=== PATIENT | female | born 1990 | race Caucasian/White ===

== ENCOUNTER → 2018-01-17 | Outpatient (CLI) | payer BC ==
--- NOTE | 2018-01-18 07:26 | US ---
EXAMINATION TYPE: US transvaginal DATE OF EXAM: 01/17/2018 COMPARISON: NONE CLINICAL HISTORY: Z30.431 routine checking of IUD contraceptive. IUD placement 02/05, doctor unable t o see strings on recent pap TECHNIQUE: Transvaginal (TV) Date of LMP: 12/20/17 EXAM MEASUREMENTS: Uterus: 7.4 x 3.5 x 4.8 cm Endometrial Stripe: 0.5 cm Right Ovary: 3.2 x 2.6 x 1.9 cm Left Ovary: 2.4 x 1.7 x 1.7 cm 1. Uterus: Anteverted heterogeneous 2. Endometrium: IUD visualized within body of uterus centrally bridging the upper and lower uterine segments. 3. Right Ovary: follicles noted 4. Left Ovary: follicles noted 5. Bilateral Adnexa: wnl 6. Posterior cul-de-sac: wnl IMPRESSION: Central intraendometrial intrauterine device appearing appropriately placed. No abnormal endometrial thickening.
== END | disposition home or self-care (01) ==
LOC: RADUSWWP 15:57
PROVIDERS: ATTEND Family Medicine
DX: Z30.431 Encounter for routine checking of intrauterine contraceptive device (principal)
CPT/HCPCS: 76830

== ENCOUNTER 2018-05-22 09:19 | Emergency (ER) | payer BC ==
[2018-05-22] MEDS ORDERED: KETOROLAC 30 MG/ML 1 ML VIAL IVP STA (10:18)
[2018-05-22] MEDS ORDERED: ACETAMINOPHEN TAB 500 MG TAB PO STA (10:18)
[2018-05-22 10:51] LABS: Basophils % (A) 1 %; Eosinophils # (A) 0.1 k/uL (0-0.7); Eosinophils % (A) 2 %; HCT 42.7 % (34.0-46.0); HGB 14.4 gm/dL (11.4-16.0); Lymphocytes # (A) 1.7 k/uL (1.0-4.8); Lymphocytes % (A) 28 %; MCH 28.4 pg (25.0-35.0); MCHC 33.7 g/dL (31.0-37.0); MCV 84.4 fL (80.0-100.0); Mean Platelet Volume 6.8; Monocytes # (A) 0.4 k/uL (0-1.0); Monocytes % (A) 6 %; Neutrophils # (A) 3.8 k/uL (1.3-7.7); Neutrophils % (A) 61 %; Platelet Count 260 k/uL (150-450); RBC 5.05 m/uL (3.80-5.40); RDW 12.9 % (11.5-15.5); WBC 6.2 k/uL (3.8-10.6)
[2018-05-22 11:02] LABS: Appearance,Urine Clear (Clear); Bilirubin,Urine Negative (Negative); Blood,Urine Moderate (Negative); Color,Urine Light Yellow; Glucose,Urine (UA) Negative (Negative); Ketones,Urine Negative (Negative); Leukocyte Esterase,Urine Negative (Negative); Mucus,Urine Rare /hpf; Nitrite,Urine Negative (Negative); PH, Urine 5.5 (5.0-8.0); Protein,Urine Negative (Negative); RBC,Urine 1 /hpf (0-5); Specific Gravity,Urine 1.006 (1.001-1.035); Squamous Epithelial Cell,Urine <1 /hpf (0-4); Urobilinogen,Urine <2.0 mg/dL (<2.0); WBC,Urine <1 /hpf (0-5)
--- NOTE | 2018-05-22 12:08 | ED ---
Abdominal Pain HPI - General Chief Complaint: Abdominal Pain Stated Complaint: Bleeding Time Seen by Provider: 05/22/18 09:37 Source: patient, RN notes reviewed, old records reviewed Mode of arrival: ambulatory Limitations: no limitations - History of Present Illness Initial Comments: This patient is a 27 year old female with vaginal bleeding after intercourse this moringin. She states that she had positive test last wek. She is concerned for miscarrage. Patient reports she has an IUD. She states that she had US to confirm placement 2 months ago. She sees Dr. Starks. - Related Data Allergies Allergy/AdvReac Type Severity Reaction Status Date / Time bupropion [From Wellbutrin] Allergy Rash/Hives Verified 05/22/18 09:21 mirtazapine [From Remeron] Allergy Rash/Hives Verified 05/22/18 09:21 Review of Systems ROS Statement: Those systems with pertinent positive or pertinent negative responses have been documented in the HPI. ROS Other: All systems not noted in ROS Statement are negative. Past Medical History Past Medical History: No Reported History History of Any Multi-Drug Resistant Organisms: None Reported Additional Past Surgical History / Comment(s): thyroid tumor removed Past Psychological History: No Psychological Hx Reported, Anxiety, Depression Smoking Status: Never smoker Past Alcohol Use History: Occasional Past Drug Use History: None Reported General Exam - General Exam Comments Initial Comments: Patient is a well appearing 27 year old female, no distress. Limitations: no limitations General appearance: alert, in no apparent distress Head exam: Present: atraumatic, normocephalic, normal inspection Eye exam: Present: normal appearance, PERRL, EOMI. Absent: scleral icterus, conjunctival injection, periorbital swelling ENT exam: Present: normal exam, mucous membranes moist Neck exam: Present: normal inspection. Absent: tenderness, meningismus, lymphadenopathy Respiratory exam: Present: normal lung sounds bilaterally. Absent: respiratory distress, wheezes, rales, rhonchi, stridor Cardiovascular Exam: Present: regular rate, normal rhythm, normal heart sounds. Absent: systolic murmur, diastolic murmur, rubs, gallop, clicks GI/Abdominal exam: Present: soft, normal bowel sounds. Absent: distended, tenderness, guarding, rebound, rigid External exam: Present: normal external exam Speculum exam: Present: vaginal bleeding. Absent: normal speculum exam By manual exam: Present: normal by manual exam Extremities exam: Present: normal inspection, full ROM, normal capillary refill. Absent: tenderness, pedal edema, joint swelling, calf tenderness Back exam: Present: normal inspection Neurological exam: Present: alert, oriented X3, CN II-XII intact Psychiatric exam: Present: normal affect, normal mood Skin exam: Present: warm, dry, intact, normal color. Absent: rash Course Vital Signs 05/22/18 05/22/18 09:21 12:22 Temperature 98.4 F 97.8 F Pulse Rate 84 75 Respiratory 18 16 Rate Blood Pressure 137/96 128/70 O2 Sat by Pulse 95 99 Oximetry Medical Decision Making - Medical Decision Making 27 year old female presents today for vaginal bleeding and history of positive test one week ago. She reports vaginal bleeding after intercourse. She has IUD, strings intact and evidence of bleeding on exam. Patient has negative HCG. Discussed she is not , and this is not a miscarriage. Discussed OB follow up. - Lab Data Result diagrams: 05/22/18 10:41 Lab Results 05/22/18 05/22/18 05/22/18 Range/Units 10:41 10:41 10:41 WBC 6.2 (3.8-10.6) k/uL RBC 5.05 (3.80-5.40) m/uL Hgb 14.4 (11.4-16.0) gm/dL Hct 42.7 (34.0-46.0) % MCV 84.4 (80.0-100.0) fL MCH 28.4 (25.0-35.0) pg MCHC 33.7 (31.0-37.0) g/dL RDW 12.9 (11.5-15.5) % Plt Count 260 (150-450) k/uL Neutrophils % 61 % Lymphocytes % 28 % Monocytes % 6 % Eosinophils % 2 % Basophils % 1 % Neutrophils # 3.8 (1.3-7.7) k/uL Lymphocytes # 1.7 (1.0-4.8) k/uL Monocytes # 0.4 (0-1.0) k/uL Eosinophils # 0.1 (0-0.7) k/uL Basophils # 0.0 (0-0.2) k/uL HCG, Quant <2.4 mIU/mL Urine Color Urine Appearance (Clear) Urine pH (5.0-8.0) Ur Specific [place] (1.001-1.035) Urine Protein (Negative) Urine Glucose (UA) (Negative) Urine Ketones (Negative) Urine Blood (Negative) Urine Nitrite (Negative) Urine Bilirubin (Negative) Urine Urobilinogen (<2.0) mg/dL Ur Leukocyte Esterase (Negative) Urine RBC (0-5) /hpf Urine WBC (0-5) /hpf Ur Squamous Epith Cells (0-4) /hpf Urine Mucus (None) /hpf Urine HCG, Qual Not Detected (Not Detectd) Trichomonas Ag (Rapid) (Negative) 05/22/18 05/22/18 Range/Units 10:41 12:19 WBC (3.8-10.6) k/uL RBC (3.80-5.40) m/uL Hgb (11.4-16.0) gm/dL Hct (34.0-46.0) % MCV (80.0-100.0) fL MCH (25.0-35.0) pg MCHC (31.0-37.0) g/dL RDW (11.5-15.5) % Plt Count (150-450) k/uL Neutrophils % % Lymphocytes % % Monocytes % % Eosinophils % % Basophils % % Neutrophils # (1.3-7.7) k/uL Lymphocytes # (1.0-4.8) k/uL Monocytes # (0-1.0) k/uL Eosinophils # (0-0.7) k/uL Basophils # (0-0.2) k/uL HCG, Quant mIU/mL Urine Color Light Yellow Urine Appearance Clear (Clear) Urine pH 5.5 (5.0-8.0) Ur Specific [place] 1.006 (1.001-1.035) Urine Protein Negative (Negative) Urine Glucose (UA) Negative (Negative) Urine Ketones Negative (Negative) Urine Blood Moderate H (Negative) Urine Nitrite Negative (Negative) Urine Bilirubin Negative (Negative) Urine Urobilinogen <2.0 (<2.0) mg/dL Ur Leukocyte Esterase Negative (Negative) Urine RBC 1 (0-5) /hpf Urine WBC <1 (0-5) /hpf Ur Squamous Epith Cells <1 (0-4) /hpf Urine Mucus Rare H (None) /hpf Urine HCG, Qual (Not Detectd) Trichomonas Ag (Rapid) Negative (Negative) Disposition Clinical Impression: Vaginal bleeding Disposition: HOME SELF-CARE Condition: Good Instructions (If sedation given, give patient instructions): Dysfunctional Uterine Bleeding (ED) Additional Instructions: Patient should follow-up with your primary care physician. Patient should return to the emergency department if any alarming signs or symptoms occur. Patient advised to take Motrin Tylenol for pain. Is patient prescribed a controlled substance at d/c from ED?: No Referrals: Lacho Aaron DO [Primary Care Provider] - 1-2 days Time of Disposition: 12:09
[2018-05-22 12:24] VITALS: BP 128/70; PULSE 75; RESP 16; TEMP 97.8
[2018-05-23 13:13] LABS: C. trachomatis,PCR Negative (Neg,Equiv); Chlamydia trachomatis Source Cervix; N. gonorrhoeae,PCR Negative (Neg,Equiv); Neisseria Source Cervix
== END 2018-05-22 12:22 | disposition home or self-care (01) ==
LOC: EC 09:19
DX: N93.0 Postcoital and contact bleeding (principal); Z88.8 Allergy status to other drugs, medicaments and biological substances
CPT/HCPCS: 36415; 85025; 81001; 81025; 84702; 87808; 87491; 87591; 99284; 96374; J1885

== ENCOUNTER → 2021-01-29 | Outpatient (CLI) | payer BC ==
[2021-01-29 20:09] LABS: HGB 12.5 g/dL (12.0-15.0); MCH 28.6 pg (27.0-32.0); MCHC 32.9 g/dL (32.0-37.0); Platelet Count 277 X 10*3/uL (140-440); RBC 4.37 X 10*6/uL (4.10-5.20); RDW 12.9 % (11.5-14.5); WBC 5.87 X 10*3/uL (4.50-10.00)
[2021-01-29 20:29] LABS: ALT 25 U/L (8-44); AST 15 U/L (13-35); African American GFR (CKD) 132.9 (60.0-200.0); Albumin 4.6 g/dL (3.8-4.9); Albumin/Globulin Ratio 1.92 (1.60-3.17); Alkaline Phosphatase 64 U/L (41-126); BUN/Creat Ratio 17.57 Ratio (12.00-20.00); Blood Urea Nitrogen 12.3 mg/dL (9.0-27.0); Calcium 9.3 mg/dL (8.7-10.3); Chloride 104 mmol/L (96-109); Globulin 2.4 g/dL (1.6-3.3); Glucose 123 mg/dL (70-110); Non-African American GFR(CKD) 114.6 (60.0-200.0); Potassium 4.1 mmol/L (3.5-5.5); Sodium 138 mmol/L (135-145); Total Bilirubin <0.20 mg/dL (0.30-1.20)
== END | disposition home or self-care (01) ==
LOC: LABWHC1 14:57
PROVIDERS: ATTEND Internal Medicine Endocrinology, Diabetes & Metabolism
DX: R53.83 Other fatigue (principal)
CPT/HCPCS: 36415; 80053; 82533; 82607; 84146; 84439; 84443; 84481; 85027

== ENCOUNTER → 2021-02-05 | Outpatient (CLI) | payer BC ==
--- NOTE | 2021-02-07 07:15 | NM ---
EXAMINATION TYPE: NM thyroid image w uptake DATE OF EXAM: 02/06/2021 COMPARISON: NONE HISTORY: Other fatigue per order. Additional symptoms of thyroid swallowing irritability and insomnia per patient. TECHNIQUE: Thyroid iodine uptake is calculated and images performed after the oral administration of 318 uCi 1-123 Capsule. FINDINGS: There is normal distribution of activity throughout the gland. The 4 hour iodine uptake is calculated at 11% (normal range 8-14%). The 24-hour iodine uptake is calculated at 25% (normal range 15-35%). IMPRESSION: Normal thyroid scan and uptake.
== END | disposition home or self-care (01) ==
LOC: RADNMMAIN 08:38
PROVIDERS: ATTEND Internal Medicine Endocrinology, Diabetes & Metabolism
DX: R53.83 Other fatigue (principal)
CPT/HCPCS: 78014; A9516